=== PATIENT | female | born 1985 | race Two or more races ===

== ENCOUNTER → 2018-12-21 | Outpatient (CLI) | payer BC | END | disposition home or self-care (01) | LOC: RAD 07:05 | PROVIDERS: ATTEND Surgery | DX: Z01.818 Encounter for other preprocedural examination (principal); E66.01 Morbid (severe) obesity due to excess calories | CPT/HCPCS: 74247 ==

== ENCOUNTER 2020-05-11 19:46 | Emergency (ER) | payer BC, OTHER ==
[~2020-05-11] VITALS: Ht 162.6 cm; Wt 95.1 kg
[2020-05-11 19:49] VITALS: BP 131/71
[2020-05-11] MEDS ORDERED: KETOROLAC 60 MG/2 ML ONE (21:17)
[2020-05-11] MEDS ORDERED: DIAZEPAM 5 MG TABLET ONE (21:17)
[2020-05-11] MEDS ORDERED: DIAZEPAM 5 MG TABLET PO ONE (21:30)
[2020-05-11] MEDS ORDERED: KETOROLAC 30 MG/1 ML IM ONE (21:30)
== END 2020-05-11 22:40 | disposition home or self-care (01) ==
LOC: ED 19:54
DX: S39.012A Strain of muscle, fascia and tendon of lower back, initial encounter (principal); G89.29 Other chronic pain; F17.200 Nicotine dependence, unspecified, uncomplicated; X58.XXXA Exposure to other specified factors, initial encounter; Y93.89 Activity, other specified; Y92.89 Other specified places as the place of occurrence of the external cause; Y99.8 Other external cause status
CPT/HCPCS: 72110; 96372; 99283; J1885